=== PATIENT | male | born 1975 | race Two or more races ===

== ENCOUNTER 2020-04-14 08:01 | Emergency (ER) | payer OTHER ==
[~2020-04-14] VITALS: Ht 167.6 cm; Wt 145.1 kg
--- NOTE | 2020-04-14 08:15 | NUR ---
BIB SELF C/O WHITISH DISCOLORATION AND PAIN,MOUTH, COUGHING DURING TRIAGE. VS CHECKED. AWAITING MD LANGLEY
[2020-04-14 09:13] VITALS: BP 131/81
--- NOTE | 2020-04-14 09:13 | NUR ---
COVID SWAB AND RAPID STREP COLLECTED SENT TO LAB
--- NOTE | 2020-04-14 09:13 | NUR ---
Patient discharged to home in stable condition. Written and verbal after care instructions given. Patient verbalizes understanding of instruction.
== END 2020-04-14 09:14 | disposition home or self-care (01) ==
LOC: ER 08:05
DX: J02.9 Acute pharyngitis, unspecified (principal); B37.0 Candidal stomatitis; Z20.828 Contact with and (suspected) exposure to other viral communicable diseases
CPT/HCPCS: 87070; 87880; 99283; C9803; U0003; 86403-TC